=== PATIENT | male | born 1945 | race Caucasian/White ===

== ENCOUNTER 2020-11-21 19:58 | Emergency (ER) | payer OTHER ==
[~2020-11-21] VITALS: Ht 172.7 cm; Wt 68.0 kg
== END 2020-11-21 22:11 | disposition home or self-care (01) ==
LOC: ER 19:58
DX: U07.1 COVID-19 (principal); R00.0 Tachycardia, unspecified
CPT/HCPCS: 96374; 99283-25; A9270; J2405; J7030